=== PATIENT | female | born 2005 | race African-American/Black ===

== ENCOUNTER → 2024-07-08 10:49 | Outpatient (BNVA) | payer OTHER, SELFPAY | PROVIDERS: PCP Pediatrics; Visit Provider Surgery ==

== ENCOUNTER 2024-07-21 08:07 | Outpatient (AMB) | payer OTHER, SELFPAY ==
--- NOTE | 2024-07-21 08:01 | A.OFFVIS_ITS ---
VS Expanded 07/21/24 08:12 Height 5 ft 6 in Weight 341 lb 2 oz BMI 55.1 Body Fat % 49.7 Body Fat Mass 169.6 Fat Free Mass 171.6 Visceral Fat Rating 16 Body Water % 36.2 Body Water Mass 123.4 Basal Metabolic Rate/Score 2,565 Intake Visit Reasons: [employer] SWL BMI 55.1 Allergies No Known Allergies Allergy (Verified 07/21/24 08:01) Medication List - Last Reconciled 07/21/24 by Harshad Romero MD [id number] [id number] mg 1 cap PO Q4H PRN cetirizine (Zyrtec) 10 mg PO DAILY PRN cholecalciferol (vitamin D3) 50 mcg PO DAILY clindamycin phosphate 1% 1 appl topical BEDTIME fluticasone propionate 50 mcg/actuation (Flonase Allergy Relief) 1 spray intranasal DAILY medroxyprogesterone (Depo-Provera) 150 mg IM [id number] tretinoin 0.05% (Retin-A) 1 appl topical BEDTIME HPI HPI [employer] DIRECT[employer] SWL BMI 55.1: Details: Start time: 8am, End time: 8.47am ?I spent 42 minutes speaking with the patient on the phone plus an additional 5 minutes reviewing and updating records for a total of 47 minutes HPI Comments Details: Previous weight loss efforts: self diets, exercise, Premier protein shakes Wakes up: 8am, Sleeps: 10.30pm, Work days:4am-8am and 9am-11am Breakfast: 9-10am (scrambled eggs with toast) Lunch: 3pm (take-out: salads) Dinner: 8pm (salads, protein shakes) Snacks: 1pm (Quest protein bars), 12am (Adrian sandwich) Exercise: none Beverages: Coffee: none, tea: none, soda: none, juice: none, ETOH: none PFSH Medical History (Updated 07/21/24 @ 08:04 by Harshad Romero MD) Migraines Hypertension Acne Morbid obesity Surgical History (Updated 07/08/24 @ 11:10 by Yumiko Ferraro CMA) Hx of adenoidectomy Family History (Updated 07/08/24 @ 11:11 by Yumiko Ferraro CMA) Mother Thyroid condition Father No problems noted. Social History (Updated 07/08/24 @ 11:11 by Yumiko Ferraro CMA) Alcohol intake: never Patient Tobacco Use Status: Never used Tobacco Telehealth Telehealth Telehealth Platform: Telephone Location of provider rendering services: practice address Location of patient: address on file Patient Identification confirmed using: Name, : Yes Telehealth method: voice only Patient verbally consented to treatment: Yes Patient verbally consented to billing insurance company: Yes Patient informed of any privacy concerns related to visit: Yes Minutes spent on Phone/Video with Pt.: 47 Assessment & Plan Assessment & Plan (1) Morbid obesity: Code(s): E66.01 - Morbid (severe) obesity due to excess calories Category: Medical Plan: 1.? Plan for lap sleeve gastrectomy. If diaphragmatic or ventral hernias are present at time of surgery, these will be repaired laparoscopically as well. I emphasized the importance of close follow-up, adherence to instructions and good communication. The surgery does not replace the need to change your li festlyle which is the cause of the obesity problem. The surgery provides the motivation to try again to change your lifestyle, it reduces the appetite and make the transition to a better lifestyle easier and doubles the amount of weight you would lose compared to doing the lifestyle change without the surgery. You will need to be on a liquid diet with protein shakes for 2 weeks before surgery to maximize weight loss and boost your nutritional status to recover better from surgery and also for the first two weeks after surgery to let the stomach heal before we introduce other foods. After the first 2 weeks we will introduce protein bars and soft foods like scrambled eggs, cottage cheese and yogurt and after the 6th week will introduce meat, fish and cooked vegetables in small amounts. Over time you should be able to eat everything in small amounts. Side effects like nausea, vomiting, heartburn or abdominal pain are not common in the practice unless you are not following in the practice. This operation requires lifetime commitment to following in our practice and communication with me. You will much less weight and experience side effects if you don?t communicate or not following in the practice. Complications are rare and in our practice is about 1/10 of the national average. However, you can develop bleeding that may require transfusion (hasn?t happened for year in the practice), you may from complications (we did not have any deaths in the practice) and infections. Infections are usually a result of breakdown in communication or not understanding or following directions correctly. They are difficult to treat, they can happen during the first 6 weeks, they may require to be in the hospital for weeks or even months, not being able to eat by mouth and you may have drains and surgeries to try and correct the issue. Other risks and complications include possible conversion to an open procedure, leaks, small bowel obstruction, blood clots, cardiac, or pulmonary complications, as half-way complications such as ulcers, insufficient weight loss and vitamin deficiencies. 2. You will receive a link of our software zay to generate an individualized nutritional and exercise plan specific for you. Please send me a screenshot of the plans you will generate Meal to include lean meat (beef, fish, pork, turkey, chicken), or [place] and ca[place] islander yogurt, or egg whites, or beans with a salad with olive oil and fruits (berries, pears, apples, kiwi). Avoid salt, breads, potatoes, rice, pasta, desserts. ?3. If you choose shakes, each shake would be drunk slowly, like coffee in a period of 2 hours. ?4. If you choose bars, cut each bar in 4 pieces and eat each piece in 30min ?to make each bar last 2 hours. ?5. I emphasized the importance of measuring accurately the food portion and measure it when serving the food in plate ?6. The meal portions include a specific number of forks of meat and salad. You always eat the meat portion but you can replace up to half of salad/vegetables portion with rice, potatoes or pasta, or a fruit ?if you like. The less you do it the better weight loss will be. ?7. One full-size fork is what it can be scooped on the fork without falling aside and not what can be bit with the fork. Use regular forks like those you find in a typical restaurant. ?8.? Please buy the body composition scale we discussed and send me weight measurements as soon as possible and then once a week. Always include your diet and exercise plan. 9. The best choice would be to purchase a stationary bike, elliptical or treadmill at home that can track calories. You can create and exercise plan with the Go Try It OnI zay. ?10.?It is important of avoiding and for at least 18 months postoperatively and has been discussed at the infosession. ?11. Goal is to lose at least 1.5-2lbs per week ?12. Goal to lose at least 10% of your weight before surgery, which is about 34lbs. Minimum weight goal: 307lbs before surgery 13. Please follow the diet plan exactly without any change. If you don't like something about the plan or you feel hungry you need to communicate with me so I can help you revise the plan. You should not change the plan yourself. 14. To be scheduled for EGD to assess the stomach's anatomy. The possibility of biopsies was discussed. Patient needs to avoid use of NSAIDs and aspirin for 1 week prior to EGD. You must be on liquids only the day before your endoscopy. Risks of perforation and bleeding was discussed with the patient. This will be an outpatient procedure with IV sedation.
--- OUTSIDE RECORDS SUMMARY | 2024-07-21 08:11 | XMS_ITS | Encounter Summary ---
Author Organization [facility] Address [address] [place] [address] Phone Care Team Providers Care Workshop Manager Name Role Phone Renee Ayers MD Primary Care Provider [phone] Reason for Visit * Reason Onset Date Comments Med Refill 02/19/2022 Encounter Details Date Type Department Care Team ([facility] Contact Info) Description 02/19/2022 Refill [facility] [place] [address] [place] [address] Negar Srinivasan MD [address] [place] [address] Vitamin D deficiency, unspecified; Allergic rhinitis, unspecified seasonality, unspecified trigger Social History Tobacco Use Types Packs/Day Years Used Date Smoking Tobacco: Never Smokeless Tobacco: Never Alcohol Use Standard Drinks/Week Comments No 0 (1 standard drink = 0.6 oz pur e alcohol) Hunger/Food Answer Date Recorded In the last 12 months, did y ou or your family ever eat less than you felt you should because there wasn't enough money for food? No 02/02/2022 Stable Housing Answer Date Recorded Are you worried that in the next 2 months you may not have stable housing? No 02/02/2022 Transportation Concerns Answer Date Rec orded In the last 12 months, have you or your family ever had to go without healthcare because you didn't have a way to get there? No 02/02/2022 Hazards in Home Answer Date Recorded Think about the place you li ve. Do you have problems with any of the following? Pests (mice or roaches), mold, no/not working smoke detectors, water leaks, no window guards. No 2021 Financing Utilities Answer Date Recorde d In the last 12 months, has t he electric, gas, oil, or water company threatened to shut off your services in your home? No 02/02/2022 Safety at Home Answer Date Recorded Are you or your family worried about feeling saf e in your home? No 02/02/2022 Outside Support Answer Date Recorded Do you feel that you need mo re support from other people or programs to help you care for yourself or your family? No 02/02/2022 Understanding Health Concerns Answer Da te Recorded Do you need help understandi ng your or your child's healthcare needs (diagnosis, medications, plan, etc.)? No 02/02/2022 Financing Health Concerns Answer Date R ecorded In the last 12 months, was t here a time when your child needed to see a doctor or get medications or supplies but could not because of cost? No 02/02/2022 Missing School or Work Answer Date James rded Did you or your child miss s chool or work because of a health problem that could have been avoided? No 02/02/2022 Comments No Sex and Gender Information Value Date Recorded Sex Assigned at Female 12/05/2019 11:16 AM EDT Legal Sex Female 2:33 PM EDT Gender Identity Female 12/05/2019 11:16 AM EDT Sexual Orientation Straight 12/05/2019 11 :16 AM EDT documented as of this encounter Miscellaneous Notes * Telephone Encounter - No Rivera MD - 02/20/2022 6:08 PM EST Refills x 60 d to get pt to next [facility] * Telephone Encounter - Owen Gao LPN - 02/20/2022 10:50 AM EST Pt is requesting a refill on vitamin D and loratadine. Pt has PE scheduled for 02/22/22. documented in this encounter Plan of Treatment Upcoming Encounters Date Type Department Care Team (Late st Contact Info) Description 08/27/2024 8:30 AM EDT Office Visit [facility] [place] [address] [place] [address] Renee Ayers MD [address] [place] [address] 10/01/2024 10:15 AM EDT Office Visit [facility] [address] [place] [address] Renee Ayers MD [address] [place] [address] documented as of this encounter Visit Diagnoses Diagnosis Vitamin D deficiency, unspecified Allergic rhinitis, unspecified seasonality, unspecified trigger documented in this encounter Care Teams Workshop Manager Relationship Specialty Start Date End Date Renee Ayers MD [address] [place] [address] PCP - General Pediatrics 11/03/22 documented as of this encounter
[2024-07-21 08:12] VITALS: BMI 55.1
== END 2024-07-21 08:48 | disposition home or self-care (01) ==
LOC: HO.HBS 08:07
PROVIDERS: PCP Pediatrics; Visit Provider Surgery
DX: E66.01 Morbid (severe) obesity due to excess calories (principal)
CPT/HCPCS: 99204

== ENCOUNTER 2024-07-25 12:06 | Outpatient (REF) | payer OTHER, SELFPAY ==
--- NOTE | ~2024-07-25 | XR_ITS ---
EXAMINATION: XR CHEST 2 VIEWS HISTORY: E66.01 - Morbid (severe) obesity due to excess calories COMPARISON: There are no prior studies available for comparison. FINDINGS: PA and lateral views of the chest are submitted. The lungs are expanded and clear. There is no pleural effusion, pneumothorax, or pulmonary vascular congestion. The heart is normal in size. There is mild S-shaped scoliosis of the spine. XR/XR chest 2V IMPRESSION: Clear lungs. Electronically signed by: Dawit Yarbrough MD 07/25/2024 01:13 PM EDT
--- NOTE | 2024-07-25 12:28 | ECG_ITS ---
Test Reason : E66.1 Blood Pressure : */* mmHG Vent. Rate : 88 BPM Atrial Rate : 88 BPM P-R Int : 122 ms QRS Dur : 88 ms QT Int : 360 ms P-R-T Axes : 15 86 17 degrees QTcB Int : 435 ms Normal sinus rhythm with sinus arrhythmia Normal ECG No previous ECGs available Referred By: Harshad Romero Electronically Signed By: LOTUS FARRELL
[2024-07-25 12:29] LABS: MANUAL DIFF FLAG NO
--- OUTSIDE RECORDS SUMMARY | 2024-07-25 12:31 | XMS_ITS | Encounter Summary ---
Author Organization [facility] Address [address] [place] [address] Phone Care Team Providers Care Music Producer Name Role Phone Renee Ayers MD Primary Care Provider [phone] Reason for Visit * Reason Onset Date Comments Med Refill 02/19/2022 Encounter Details Date Type Department Care Team ([facility] Contact Info) Description 02/19/2022 Refill [facility] [place] [address] [place] [address] Negar Srinivasan MD [address] [place] [address] Vitamin D deficiency, unspecified; Allergic rhinitis, unspecified [...] 60 d to get pt to next [facility] * Telephone Encounter - Owen Gao LPN - 02/20/2022 10:50 AM EST Pt is requesting a refill on vitamin D and loratadine. Pt has PE scheduled for 02/22/22. documented in this encounter Plan of Treatment Upcoming Encounters Date Type Department Care Team (Late st Contact Info) Description 08/27/2024 8:30 AM EDT Office Visit [facility] [address] [place] [address] Renee Ayers MD [address] [place] [address] 10/01/2024 10:15 AM EDT Office Visit [facility] [address] [place] [address] Renee Ayers MD [address] [place] [address] documented as of this encounter Visit Diagnoses Diagnosis Vitamin D deficiency, unspecified Allergic rhinitis, unspecified seasonality, unspecified trigger documented in this encounter Care Teams Music Producer Relationship Specialty Start Date End Date Renee Ayers MD [address] [place] [address] PCP - General Pediatrics 11/03/22 documented as of this encounter
[2024-07-25 12:45] LABS: Basophils Absolute Auto 0.1 X10*3/uL (0.0-0.2); Basophils Percent Auto 0.7 % (0-2); Eosinophils Absolute Auto 0.1 X10*3/uL (0.0-0.4); Eosinophils Percent Auto 1.6 % (0-4); Hematocrit 38.5 % (37.0-47.0); Hemoglobin 12.6 g/dl (12.0-16.0); Imm Gran Abs Auto 0.08 X10*3/uL (0.00-0.03); Lymphocytes Absolute Auto 2.6 X10*3/uL (1.2-4.9); Lymphocytes Percent Auto 33.4 % (20-40); Mean Corpuscular HGB Conc 32.7 g/dl (31.0-35.0); Mean Corpuscular Hemoglobin 24.2 pg (27.0-33.0); Mean Platelet Volume 9.6 fL (9.4-12.3); Monocytes Absolute Auto 0.7 X10*3/uL (0.1-1.2); Neutrophils Absolute Auto 4.1 x10*3/uL (2.0-8.3); Neutrophils Percent Auto 54.3 % (45-73); Platelet Count 331 X10*3/uL (160-400); Red Cell Distribution Width 14.6 % (11.0-16.0); White Blood Count 7.6 X10*3/uL (4.8-10.8)
[2024-07-25 13:02] LABS: Estimated Average Glucose 114 mg/dL; Hemoglobin A1c % 5.6 % (<6.0)
[2024-07-25 13:41] LABS: Ferritin 136 ng/mL (10-122); Folate 12.4 ng/mL (> or = 4.0); TSH reflex Free T4 0.53 uIU/mL (0.32-4.0); Vitamin B12 440 pg/mL (200-900); Vitamin D 25-OH Total 27.1 ng/mL (>30)
[2024-07-25 14:03] LABS: Alanine Aminotransferase 25 U/L (0-31); Albumin Level 4.3 g/dL (3.5-5.0); Alkaline Phosphatase 109 U/L (39-117); Anion Gap 11 (12-20); Aspartate Amino Transferase 28 U/L (5-31); Bilirubin Total 0.5 mg/dL (0.0-1.0); Blood Urea Nitrogen 10 mg/dL (9-16); C Reactive Protein 4.32 mg/dL (< or = 0.50); Calcium 9.8 mg/dL (8.4-10.2); Carbon Dioxide 24 mmol/L (22-29); Chloride 110 mmol/L (96-108); Cholesterol 206 mg/dL (<200); Estimated Glomerular Filt Rate > 60; Glucose Random 93 mg/dL (60-115); HDL Cholesterol 47 mg/dL (>40); Iron 49 mcg/dL (30-160); LDL Cholesterol Calculated 143 mg/dL (<100); Percent Iron Saturation 15 % (15-50); Potassium 4.3 mmol/L (3.3-5.1); Sodium 141 mmol/L (135-145); Total Iron Binding Capacity 329 mcg/dL (228-428); Total Protein 7.5 g/dL (6.5-8.0); Triglycerides 84 mg/dL (<150); Unsaturated Iron Binding 280 ug/dL
[2024-07-25 14:38] LABS: Insulin 21 uU/mL (2-29)
[2024-07-29 17:38] LABS: Zinc 74 mcg/dL (60-130)
[2024-07-30 18:24] LABS: Vitamin A 26 mcg/dL (38-98)
[2024-07-31 15:24] LABS: Vitamin B1 8 nmol/L (8-30)
== END 2024-07-25 12:07 | disposition home or self-care (01) ==
LOC: HO.XRAY 12:06
PROVIDERS: PCP Pediatrics; Visit Provider Surgery
DX: E66.01 Morbid (severe) obesity due to excess calories (principal); I10 Essential (primary) hypertension
CPT/HCPCS: 36415; 71046; 80053; 80061; 82306; 82607; 82728; 82746; 83036; 83525; 83540; 84425; 84443; 84590; 84630; 85025; 86140; 93005

== ENCOUNTER → 2024-07-25 12:28 | Outpatient (BNV) | payer OTHER, SELFPAY | PROVIDERS: PCP Pediatrics; Visit Provider Internal Medicine | DX: E66.1 Drug-induced obesity (principal) | CPT/HCPCS: 93010 ==

== ENCOUNTER → 2024-07-25 12:38 | Outpatient (BNV) | payer OTHER, SELFPAY | PROVIDERS: PCP Pediatrics; Visit Provider Radiology Diagnostic Radiology | DX: E66.01 Morbid (severe) obesity due to excess calories (principal) | CPT/HCPCS: 71046 ==

== ENCOUNTER 2024-07-30 11:31 | Day surgery (SDC) | payer OTHER, SELFPAY ==
--- OUTSIDE RECORDS SUMMARY | 2024-07-28 15:08 | XMS_ITS | Encounter Summary ---
Author Organization [facility] Address [address] [place] [address] Phone Care Team Providers Care Training And Development Head Name Role Phone Renee Ayers MD Primary Care Provider [phone] Reason for Visit * Reason Onset Date Comments Med Refill 02/19/2022 Encounter Details Date Type Department Care Team ([facility] Contact Info) Description 02/19/2022 Refill [facility] [place] [address] [place] [address] Negar Srinivasan MD [address] [place] [address] Vitamin D deficiency, unspecified; Allergic rhinitis, unspecified [...] 60 d to get pt to next [facility] * Telephone Encounter - Owen Gao LPN - 02/20/2022 10:50 AM EST Pt is requesting a refill on vitamin D and loratadine. Pt has PE scheduled for 02/22/22. documented in this encounter Plan of Treatment Upcoming Encounters Date Type Department Care Team (Late st Contact Info) Description 08/27/2024 8:30 AM EDT Office Visit [facility] [address] [place] [address] Renee Ayers MD [address] [place] [address] 10/01/2024 10:15 AM EDT Office Visit [facility] [address] [place] [address] Renee Ayers MD [address] [place] [address] documented as of this encounter Visit Diagnoses Diagnosis Vitamin D deficiency, unspecified Allergic rhinitis, unspecified seasonality, unspecified trigger documented in this encounter Care Teams Training And Development Head Relationship Specialty Start Date End Date Renee Ayers MD [address] [place] [address] PCP - General Pediatrics 11/03/22 documented as of this encounter
--- NOTE | 2024-07-29 14:43 | HO.ANESPROP2 ---
Documented by User: Gisela Garduno NP 07/29/24 14:43 HPI - Anesthesia Eval Consult details Narrative: 18yo F for Upper Endoscopy BMI 55 Anesthesia Pre-Procedure Meds Is the patient on any of the following meds?: GLP1/DPP4 PMFSH Active Problems Active Problems: All Active Problems Migraines (Acute) Hypertension (Acute) Acne (Acute) Morbid obesity (Acute) Past Medical History Medical History H/O sleep study Migraines Hypertension Acne Morbid obesity Family History Family History Mother Thyroid condition Father No problems noted. Surgical History Surgical History Hx of adenoidectomy Social History Social History Alcohol intake: never Patient Tobacco Use Status: Never used Tobacco Use of substances other than those prescribed or required for medical reasons: No Are you DNR?: No Advance Directives: No Advance Directives Information Provided: Yes : No Poor oral hygiene: No Meds Allergies Allergy/AdvReac Type Severity Reaction Status Date / Time No Known Allergies Allergy Verified 07/21/24 08:01 Home Medications ?Medication ?Instructions ?Recorded ?Confirmed ?Last Taken ?Type butalbital 50 mg-acetaminophen 325 1 cap PO Q4H PRN 07/08/24 07/21/24 Unknown History mg-caffeine 40 mg-codeine 30 mg cap cetirizine 10 mg capsule (Zyrtec) 10 mg PO DAILY PRN 07/08/24 07/21/24 Unknown History cholecalciferol (vitamin D3) 50 50 mcg PO DAILY 07/08/24 07/21/24 Unknown History mcg (2,000 unit) capsule clindamycin phosphate 1 % topical 1 appl topical BEDTIME 07/08/24 07/21/24 Unknown History solution fluticasone propionate 50 1 spray intranasal DAILY 07/08/24 07/21/24 Unknown History mcg/actuation nasal spray,suspension (Flonase Allergy Relief) medroxyprogesterone 150 mg/mL 150 mg IM [id number] 07/08/24 07/21/24 Unknown History intramuscular suspension (Depo-Provera) tretinoin 0.05 % topical cream 1 appl topical BEDTIME 07/08/24 07/21/24 Unknown History (Retin-A) Assessment and Plan Assessment Anesthesia Assessment: Chart Reviewed Documented by User: Katherin Howard MD 07/30/24 12:45 [facility] Past Medical History Medical History H/O sleep study Migraines Hypertension Acne Morbid obesity Family History Family History Mother Thyroid condition Father No problems noted. Surgical History Surgical History Hx of adenoidectomy History of Problems with Anesthesia: No Social History Social History Alcohol intake: never Patient Tobacco Use Status: Never used Tobacco Use of substances other than those prescribed or required for medical reasons: No Are you DNR?: No Advance Directives: No Advance Directives Information Provided: Yes : No Poor oral hygiene: No Meds Allergies Allergy/AdvReac Type Severity Reaction Status Date / Time No Known Allergies Allergy Verified 07/21/24 08:01 Home Medications ?Medication ?Instructions ?Recorded ?Confirmed ?Last Taken ?Type butalbital 50 mg-acetaminophen 325 1 cap PO Q4H PRN 07/08/24 07/21/24 Unknown History mg-caffeine 40 mg-codeine 30 mg cap cetirizine 10 mg capsule (Zyrtec) 10 mg PO DAILY PRN 07/08/24 07/21/24 Unknown History cholecalciferol (vitamin D3) 50 50 mcg PO DAILY 07/08/24 07/21/24 Unknown History mcg (2,000 unit) capsule clindamycin phosphate 1 % topical 1 appl topical BEDTIME 07/08/24 07/21/24 Unknown History solution fluticasone propionate 50 1 spray intranasal DAILY 07/08/24 07/21/24 Unknown History mcg/actuation nasal spray,suspension (Flonase Allergy Relief) medroxyprogesterone 150 mg/mL 150 mg IM [id number] 07/08/24 07/21/24 Unknown History intramuscular suspension (Depo-Provera) tretinoin 0.05 % topical cream 1 appl topical BEDTIME 07/08/24 07/21/24 Unknown History (Retin-A) Exam Airway Mallampati Class: III TM Dist: >3cm Neck ROM: Full Loose/Missing/Broken Teeth: No Heart: RRR Lungs: CTA Assessment and Plan Assessment Anesthesia Assessment: Anesthesia Plan Discussed Final Anesthetic Review History of Problems with Anesthesia: No NPO: Yes ASA Class: III Final Preanesthetic Review: Meds/Allgs Chart Reviewed, Consent Obtained/Reviewed and Anes Risks/Benef Reviewed Patient Risk: Intermediate Procedure Risk: Intermediate Anesthetic Plan Anesthetic Plan: MAC: Disposition: Standard PACU
[2024-07-30 12:01] VITALS: BMI 53.5
[2024-07-30 12:13] VITALS: BMI 53.5
[2024-07-30 12:40] VITALS: BP 135/72; PULSE 90; RESP 16; TEMP 36.5; O2SAT 98
[2024-07-30] MEDS: Lactated Ringers 1,000 ML 100 ML IVCONT (12:49)
[2024-07-30 12:56] LABS: HCG Quantitative < 2 mIU/mL
--- NOTE | 2024-07-30 12:58 | MHC.SHP ---
Pre-Procedural Eval Section A - 24 Hr Update-Section A only Date of Service: 07/30/24 The patient is an INPATIENT: No The patient has been examined within 24 hours of the surgical procedure. The History & Physical has been completed within 30 days and I have reviewed it.: Yes Section B - Complete if H&P > 30 days Chief Complaint: Morbid (severe) obesity due to excess calories Relevant Family History (Specify if Yes): No Relevant Social History: None Present Medications: None Medical History: No relevant PMH History of Previous Operations: No relevant previous surgery Allergies: Allergies Allergy/AdvReac Type Severity Reaction Status Date / Time No Known Allergies Allergy Verified 07/21/24 08:01 Review of Systems Sugical H&P ROS: Negative: Constitution, Cardiovascular, Respiratory, Neurological, Psychiatric, Hem-Onc, Allergic/Immunologic, Gastrointestinal, Genitourinary, Musculoskeletal, Integumentary, Endocrine and Eyes/Ears/Nose/Throat Exam Surgical H&P Exam: Normal: HEENT, Normal: Heart, Normal: Lungs, Normal: Extremities, Normal: Abdomen, Normal: Skin and Normal: Neurological Plan Diagnosis/Plan: Unchanged (EGD to assess the stomach's anatomy. Risks of bleeding and perforation were discussed with the patient and she is in agreement with the plan.) I have reviewed the history and physical and performed a pertinent physical examination on my patient. No changes have occurred unless specified. Time Spent With Patient Time: Total time managing care of this patient today ____ minutes.
--- NOTE | 2024-07-30 13:01 | P.BOP_ITS ---
Brief Operative Note Date of Service: 07/30/24 Pre-op diagnosis: Morbid obesity Post-op diagnosis: same Procedure: PROCEDURE DATE: 07/30/2024 PREOPERATIVE DIAGNOSIS: Morbid obesity POSTOPERATIVE DIAGNOSIS: ?Same as above. 1) small hiatal hernia PROCEDURE: Csfshlen-eephzg-scizgmddipyi with biopsies Surgeon: ?Adriano Romero M.D.. Ph.D. Media Intern: None ? Anesthesia: IV sedation Estimated blood loss: ?Minimal FINDINGS AND PROCEDURE: ? OPERATIVE INDICATIONS: ?The patient is a 18 year old female known to me who is interested in bariatric surgery. Based on this information I recommended an upper endoscopy to evaluate the stomach's anatomy. Risks and complications of the surgery were discussed with the patient in advance particularly the possibility of perforation or bleeding that may require surgical intervention. The patient understood the risks and was in agreement with the plan. ? PROCEDURE: After informed consent was obtained by the patient, the patient was ?transferred to the Operating Room and was placed in the supine position.? After successful induction of IV sedation, a mouth block was inserted and the patient was placed in the left lateral decubitus position. An upper endoscopy was performed next, the oropharynx and esophagus appeared within the normal limits. There was a small 2-3cm hiatal hernia. The z-line was smooth. Two biopsies were obtained from the distal esophagus 2-3 cm proximal to the GE junction and two additional biopsies from the GE junction. The stomach was entered and it appeared to be of normal size. There was no gastritis. There was no stricture or ulcer. A biopsy was obtained from the gastric fundus and the antrum. No significant bleeding was noted from any of the biopsy sites. Retroflexion of the scope confirmed the presence of a small diaphragmatic hernia. The scope was then advanced into the duodenum which appeared to be normal as well. At that point the duodenum ?and the stomach were decompressed and the scope was withdrawn from the patient's mouth. The patient extubated and was transferred in stable condition to the Recovery Room for further care. I was present and performed all steps of the procedure. There were no residents to assist with this case. Adriano Romero M.D., Ph.D. Surgeon: Harshad Romero MD Anesthesia: MAC Was an Media Intern used for this Procedure?: No Estimated blood loss (mL): 0 IV fluids (mL): 400 Urine output (mL): 0 (No [place] to record output) Pathology: other (1) antrum x1, 2) fundus x1, 3) GE junction x2, 4) distal esophagus x2) Condition: stable Disposition: PACU
[2024-07-30 13:35] VITALS: BP 139/79; PULSE 104; RESP 12; TEMP 36.8; O2SAT 100
[2024-07-30 13:50] VITALS: BP 149/88; PULSE 87; RESP 16; TEMP 36.6; O2SAT 98
== END 2024-07-30 14:13 | disposition home or self-care (01) ==
PROVIDERS: Anesthesiology; PCP Pediatrics; Visit Provider Surgery
PROC: 0DJ08ZZ Inspection of Upper Intestinal Tract, Via Natural or Artificial Opening Endoscopic (ICD-10-PCS; CPT 43235; principal; 2024-07-30 15:30)
DX: E66.01 Morbid (severe) obesity due to excess calories (principal); Z68.43 Body mass index [BMI] 50.0-59.9, adult; K44.9 Diaphragmatic hernia without obstruction or gangrene; I10 Essential (primary) hypertension; G43.909 Migraine, unspecified, not intractable, without status migrainosus; L70.9 Acne, unspecified; Z90.89 Acquired absence of other organs; Z79.899 Other long term (current) drug therapy
CPT/HCPCS: 43239; 36415; 84702; 88305; 88313; 88342

== ENCOUNTER → 2024-07-30 11:31 | Outpatient (BNV) | payer OTHER, SELFPAY | PROVIDERS: PCP Pediatrics; Visit Provider Surgery | DX: K44.9 Diaphragmatic hernia without obstruction or gangrene (principal) | CPT/HCPCS: 43239 ==

== ENCOUNTER 2024-08-08 10:12 | Outpatient (AMB) | payer OTHER, SELFPAY ==
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
--- OUTSIDE RECORDS SUMMARY | 2024-08-08 10:28 | XMS_ITS | Encounter Summary ---
Author Organization [facility] Address [address] [place] [address] Phone Care Team Providers Care Security System Technician Name Role Phone Renee Ayers MD Primary Care Provider [phone] Reason for Visit * Reason Onset Date Comments Med Refill 02/19/2022 Encounter Details Date Type Department Care Team ([facility] Contact Info) Description 02/19/2022 Refill [facility] [address] [place] [address] Negar Srinivasan MD [address] [place] [address] Vitamin D deficiency, unspecified; Allergic rhinitis, unspecified [...] 60 d to get pt to next [facility] * Telephone Encounter - Owen Gao LPN - 02/20/2022 10:50 AM EST Pt is requesting a refill on vitamin D and loratadine. Pt has PE scheduled for 02/22/22. documented in this encounter Plan of Treatment Upcoming Encounters Date Type Department Care Team (Late st Contact Info) Description 08/27/2024 8:30 AM EDT Office Visit [facility] [address] [place] [address] Renee Ayers MD [address] [place] [address] 10/01/2024 10:15 AM EDT Office Visit [facility] [address] [place] [address] Renee Ayers MD [address] [place] [address] documented as of this encounter Visit Diagnoses Diagnosis Vitamin D deficiency, unspecified Allergic rhinitis, unspecified seasonality, unspecified trigger documented in this encounter Care Teams Security System Technician Relationship Specialty Start Date End Date Renee Ayers MD [address] [place] [address] PCP - General Pediatrics 11/03/22 documented as of this encounter
== END 2024-08-08 11:38 | disposition home or self-care (01) ==
LOC: HO.HBST 10:12
PROVIDERS: PCP Pediatrics; Visit Provider Counselor Mental Health
DX: F43.9 Reaction to severe stress, unspecified (principal)
CPT/HCPCS: 90791

== ENCOUNTER 2024-09-01 11:10 | Outpatient (AMB) | payer BC, OTHER, SELFPAY ==
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
--- OUTSIDE RECORDS SUMMARY | 2024-09-01 12:15 | XMS_ITS | Clinical Summary ---
Author Organization [facility] Address [address] [place] [address] Phone Care Team Providers Care Ranch Manager Name Role Phone No Rivera MD Primary Care Provider [phone] Allergies No known active allergies Medications butalbital-acet aminophen-caffe ine 50-300-40 mg capsule TAKE 1 CAPSULE BY MOUTH EVERY 12 (TWELVE) HOURS NEEDED (HEADACHE). 01/22/2024 Active cetirizine (ZyrTEC) 10 mg tablet TAKE 1 TABLET BY MOUTH UP TO TWICE A DAY 02/11/2024 Active Vitamin D3 50 mcg (2,000 unit) capsule Take 1 capsule (2,000 Units total) by mouth 1 (one) time each day. 01/12/2024 Active medroxyPROGESTE Shar 150 mg/mL injection INJECT 1 ML (150 MG TOTAL) INTO THE MUSCLE EVERY 3 (THREE) MONTHS 01/04/2024 Active Active Problems No known active problems Immunizations Name Administration Dates Next Due DTaP (Infanrix) 6wks to less than 7yo ,05/23/2005,07/26/2004,05/11,02/17/2004 [id number] (Pentacel) 2mo to less than 5yo 05/23/2005,05/11/2004,02/17/2004 H1N1 Inj Preservative Free 03/22/2022,,12/05/2019,12/17,11/13/2016,05/11/2016,03/24/2015 HPV, Quadrivalent 08/05/2015,03/24/2015,10/16/19 15 Hepatitis A Pediatric (Havri x; Vaqta) 12mo to less than 19yo 10/13/2013,06/07/2012 Hepatitis B Pediatric (Enger ix B; Recombivax HB) to less than 20 yo 02/16/2005,05/11/2004,2003 IPV Inactivated polio (Ipol) 6wks and older 06/08/2011,07/26/2004,05/11/2004,02/11 MMRV, measles mumps rubella and varicella live (Proquad) 4yo to less than 7yo 03/30/2008,11/28/2004 Meningococcal B, Recombinant (Bexsero) 16yo to less than 24yo 09/02/2021,01/07/2021 [employer] SARS-CoV-2 COVID-19, mRNA, LNP-S, preservative free 02/18/2021,07/09/2020,06/18/2020 Tdap Tetanus diptheria acell ular pertussis (Boostrix; Adacel) 7yo and older 03/24/2015 Varicella live (Varivax) 12m o and older 03/30/2008,05/23/2005 Surgical History Surgery Date Site/Laterality Comments ADENOIDECTOMY PROCEDURE: HISTORICAL ADENOIDECTOMY Medical History Medical History Date Comments Patient denies medical problems DX:Patient denies medical problems Family History Medical History Relation Name Comments No Known Problems Brother 1 No Known Problems Brother 2 No Known Problems Father No Known Problems Maternal Grandfather No Known Problems Maternal Grandmother Thyroid disease Mother Pancreatic cancer Paternal Grandfather Diabetes Paternal Grandmother Hypertension Paternal Grandmother No Known Problems Sister 1 Thyroid disease Sister 2 Breast cancer Neg Hx Colon cancer Neg Hx Ovarian cancer Neg Hx Relation Name Status Comments Brother 1 Alive Brother 2 Alive Father Alive Maternal Grandfather Alive Maternal Grandmother Alive Mother Alive Paternal Grandfather Paternal Grandmother Alive Sister 1 Alive Sister 2 Alive Social History Tobacco Use Types Packs/Day Years Used Date Smoking Tobacco: Never Smokeless Tobacco: Never Alcohol Use Standard Drinks/Week Comments Never 0 (1 standard drink = 0.6 oz pur e alcohol) Comments No Sex and Gender Information Value Date Recorded Sex Assigned at Female 02/29/2024 4:56 PM EST Legal Sex Female 2:35 PM EST Gender Identity Female 02/29/2024 4:56 PM EST Sexual Orientation Not on file 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 on file Not on file Not on file Obstetrics History Para Term AB IAB SAB Ectopic Multiple Livin g Live Births 0 0 0 0 0 0 0 0 0 0 0 Last Filed Vital Signs Vital Sign Reading Time Taken Comments Blood Pressure 125/84 02/29/2024 3:32 PM EST Pulse 89 02/29/2024 3:32 PM EST Temperature - - Respiratory Rate - - Oxygen Saturation - - Inhaled Oxygen Concentration - - Weight 145 kg (319 lb) 02/29/2024 3:32 PM EST Height 167.6 cm (5' 6 ) 02/29/2024 3:32 PM EST Body Mass Index 51.49 02/29/2024 3:32 PM EST Plan of Treatment Health Maintenance Due Date Last Done Comments Depression Screening 01/18/2022 HIV Screening 01/18/2022 Hepatitis C Screening 01/18/2022 Social Influencers of Health Screening 01/18/2022 COVID-19 Vaccine ( season) 2023 02/18/2021, 07/09/2020, 06/18/2020 Influenza Vaccine (#1) 2024 , 10/22/2020, 12/05/2019, Additional history exists Annual Well Child Visit (3-21 years old) 02/28/2025 02/29/2024, 10/26/2022 Gonorrhea/Chlamydia Screening 02/28/2025 02/29/2024, 10/26/2022 DTaP,Tdap,and Td Vaccines (7 - Td or Tdap) 03/24/2025 03/24/2015, 03/30/2008, 05/23/2005, Additional history exists Hepatitis B Vaccines Completed 02/16/2005, 05/11/2004, 2003 HIB Vaccines Completed 05/23/2005, 04/20, 02/17/2004 MMR Vaccines Completed 03/30/2008, 11/28/2004 Varicella Vaccines Completed 03/30/2008, 0 03/30/2008, 05/23/2005, Additional history exists IPV Vaccines Completed 06/08/2011, 05/2005, 07/26/2004, Additional history exists Hepatitis A Vaccines Completed 10/13/2013, 06/08/19 13 HPV Vaccines Completed 08/05/2015, 04/2015, 10/15/2014 Meningococcal B Vaccine Completed 09/02/2021, 01/07 Meningococcal ACWY Vaccine Aged Out N o longer eligible based on patient's age to complete this topic Pneumococcal Vaccine: Pediatrics (0 to 5 Years) and At-Risk Patients (6 to 49 Years) Aged Out No longer eligible based on patient's age to complete this topic RSV Immunization Patients Under 20 months Aged Out No longer eligible based on patient's age to complete this topic Procedures Procedure Name Priority Date/Time Associated Diagnosis Comments CHLAMYDIA TRACHOMATIS AND NEISSERIA GONORRHOEAE PCR Routine 02/29/2024 3:55 PM EST Encounter for well woman exam with routine gynecological exam Screen for STD (sexually transmitted disease) from Last 3 Months or Most Recently Relevant to Health Maintenance Results * Chlamydia trachomatis and Neisseria gonorrhoeae molecular study (02/29/2024 3:55 PM EST) Neisseria gonorrhoeae PCR Negative Negative LAB MOLECULAR DIAGNOSTICS METHOD 03/01/2024 9:43 AM EST [facility] Chlamydia trachomatis PCR Negative Negative LAB MOLECULAR DIAGNOSTICS METHOD 03/01/2024 9:43 AM EST [facility] Swab Cervix uteri structure / Unknown Non-blood Collection / Unknown 02/29/2024 3:55 PM EST 02/29/2024 4:11 PM EST Renita Solitario CNM LAB MICROBIOLOGY - GENERAL OR DERABLES Final Result [facility] [address] [place] [address], from Last 3 Months or Most Recently Relevant to Health Maintenance Insurance [facility] [employer] Care Teams Ranch Manager Relationship Specialty Start Date End Date No Rivera MD [address] [place] [address] PCP - General 07/06/22
--- OUTSIDE RECORDS SUMMARY | 2024-09-01 12:15 | XMS_ITS | Clinical Summary ---
Author Organization [facility] Address [address] [place] [address] Care Team Providers Care Java Tech Name Role Phone No Rivera MD Primary Care Provider [phone] Social History Tobacco Use Types Packs/Day Years Used Date Smoking Tobacco: Never Assessed Comments Unknown Sex and Gender Information Value Date Recorded Sex Assigned at Female 11/29/2021 1:49 AM EDT Legal Sex Female 1:49 AM EDT Gender Identity Not on file Sexual Orientation Not on file Last Filed Vital Signs Vital Sign Reading Time Taken Comments Blood Pressure - - Pulse - - Temperature - - Respiratory Rate - - Oxygen Saturation - - Inhaled Oxygen Concentration - - Weight 115 kg (254 lb 6.6 oz) 09/22/2021 8:20 AM EDT Height 167.5 cm (5' 5.95 ) 09/22/2021 8:20 AM ED T Body Mass Index 41.13 09/22/2021 8:20 AM EDT Plan of Treatment Not on file Care Teams Java Tech Relationship Specialty Start Date End Date No Rivera MD [address] [place] [address] ROSMERY Lopez [address] PCP - General 09/22/21
--- OUTSIDE RECORDS SUMMARY | 2024-09-01 12:15 | XMS_ITS | Encounter Summary ---
Author Organization [facility] Address [address] [place] [address] Phone Care Team Providers Care Bookkeeper Name Role Phone Renee Ayers MD Primary Care Provider [phone] Reason for Visit * Reason Onset Date Comments Med Refill 02/19/2022 Encounter Details Date Type Department Care Team ([facility] Contact Info) Description 02/19/2022 Refill [facility] [address] [place] [address] Negar Srinivasan MD [address] [place] [address] Vitamin D deficiency, unspecified; Allergic rhinitis, unspecified [...] d to get pt to next [facility] * Telephone Encounter - Owen Gao LPN - 02/20/2022 10:50 AM EST Pt is requesting a refill on vitamin D and loratadine. Pt has PE scheduled for 02/22/22. documented in this encounter Plan of Treatment Upcoming Encounters Date Type Department Care Team (Late st Contact Info) Description 10/01/2024 10:15 AM EDT Office Visit [facility] [address] [place] [address] Renee Ayers MD [address] [place] [address] documented as of this encounter Visit Diagnoses Diagnosis Vitamin D deficiency, unspecified Allergic rhinitis, unspecified seasonality, unspecified trigger documented in this encounter Care Teams Bookkeeper Relationship Specialty Start Date End Date Renee Ayers MD [address] [place] [address] PCP - General Pediatrics 11/03/22 documented as of this encounter
== END 2024-09-01 12:03 | disposition home or self-care (01) ==
LOC: HO.HBST 11:10
PROVIDERS: PCP Pediatrics; Visit Provider Counselor Mental Health
DX: F43.9 Reaction to severe stress, unspecified (principal)
CPT/HCPCS: 90837

== ENCOUNTER 2024-09-18 08:18 | Outpatient (REF) | payer BC, OTHER, SELFPAY ==
--- NOTE | ~2024-09-18 | US_ITS ---
EXAMINATION: US ABDOMEN COMPLETE WITH LIVER ELASTOGRAPHY HISTORY: E66.01 - Morbid (severe) obesity due to excess calories TECHNIQUE: Real-time grayscale ultrasound imaging of the abdomen was performed and images were reviewed. COMPARISON: There are no prior studies available for comparison. FINDINGS: Liver: The right lobe of the liver measures 14.0 cm in size. The left lobe of the liver measures 9.0 cm in size. The liver demonstrates normal homogeneous echotexture. No focal mass or intrahepatic biliary ductal dilatation is identified. There is normal hepatopedal flow in the portal vein. Ultrasound elastography of the liver was performed with 10 separate measurements of the liver parenchyma with the patient in the supine position. Measurements were obtained approximately 2 cm below Christina's capsule and perpendicular to the capsule. The median shear wave velocity is 1.38 m/s. The interquartile range/median (IQR/median) is 0.17. Gallbladder and biliary tree: The gallbladder is unremarkable, without evidence of calculi, wall thickening, or pericholecystic fluid. There is no sonographic Dubois sign. The common bile duct is normal in caliber measuring 3 mm. Kidneys: The right kidney measures 10.3 cm in length. The left kidney measures 11.6 cm in length. The kidneys are unremarkable, without evidence of masses, hydronephrosis, or calculi. Pancreas: The pancreatic head, neck, and body are unremarkable. The pancreatic tail is obscured by bowel gas. Spleen: The spleen is normal in size and contour, measuring 10.9 cm in length. Abdominal aorta and inferior vena cava: The visualized portions of the abdominal aorta and inferior vena cava are normal in caliber. There is no free fluid in the abdomen. US/US abdomen comp w elastography IMPRESSION: Unremarkable abdominal ultrasound. The median shear wave velocity in the liver is 1.38 m/s, corresponding to a median liver stiffness of 5.72 kPa. The IQR/median value is 0.17. This is indicative of a poor quality data set, and the estimated liver stiffness may be unreliable. Findings are indicative of a low elastography value which rules out advanced chronic liver disease in asymptomatic patients. REFERENCE: Society of Radiologists in Ultrasound Liver Stiffness Thresholds (2020): LIVER STIFFNESS THRESHOLDS: *Shear wave velocity less than 1.3 m/s (Liver Stiffness equal or less than 5 kPa): High probability of being normal. *Shear wave velocity less than 1.7 m/s (Liver Stiffness less than 9 kPa): In the absence of other known clinical signs, rules out compensated advanced chronic liver disease. *Shear wave velocity between 1.7-2.1 m/s (Liver Stiffness 9-13 kPa): Suggestive of compensated advanced chronic liver disease but need further test for confirmation. *Shear wave velocity between 2.1-2.4 m/s (Liver Stiffness 13-17 kPa): Rules in compensated advanced chronic liver disease. *Shear wave velocity greater than 2.4 m/s (Liver Stiffness over 17 kPa): Suggestive of clinically significant portal hypertension. QUALITY OF DATA SET: *IQR/Median value equal or less than 0.15 implies a quality data set. *IQR/Median value over 0.15 implies a poor quality data set. SIGNIFICANT CHANGE FROM PRIOR EXAM: Significant change if liver stiffness measurement is 10% or greater from prior exam. OTHER CONSIDERATIONS: The stage of liver fibrosis may be overestimated in the setting of acute hepatitis, liver inflammation, elevated liver function tests, hepatic vascular congestion, obstructive cholestasis, non-fasting state, and infiltrative diseases such as amyloidosis and lymphoma. In some patients with NAFLD, the liver stiffness thresholds for compensated advanced chronic liver disease may be lower. In causes other than viral hepatitis and NAFLD, liver stiffness thresholds are not well established. Electronically signed by: Dawit Yarbrough MD 09/18/2024 09:19 AM EDT
--- OUTSIDE RECORDS SUMMARY | 2024-09-18 08:27 | XMS_ITS | Clinical Summary ---
Author Organization [facility] Address [address] [place] [address] Phone Care Team Providers Care Scroll Machine Operator Name Role Phone No Rivera MD Primary Care Provider [phone] Allergies No known active allergies Medications butalbital-acet [...] (Infanrix) 6wks to less than 7yo ,05/23/2005,07/26/2004,05/11,02/17/2004 [id number]-[id number]-GKY (Pentacel) 2mo to less than 5yo 05/23/2005,05/11/2004,02/17/2004 [...] (Bexsero) 16yo to less than 24yo 09/02/2021,01/07/2021 Envoy SARS-CoV-2 COVID-19, mRNA, LNP-S, preservative free 02/18/2021,07/09/2020,06/18/2020 [...] file Not on file Not on file 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 Not on file Not on file Not [...] Health Maintenance Due Date Last Done Comments HIV Screening 01/18/2022 Hepatitis C Screening 01/18/2022 Social Influencers of Health Screening 01/18/2022 COVID-19 Vaccine ( season) 2023 02/18/2021, 07/09/2020, 06/18/2020 Depression Screening 02/20/2024 Influenza Vaccine (#1) 2024 , 10/22/2020, 12/05/2019, [...] MOLECULAR DIAGNOSTICS METHOD 03/01/2024 9:43 AM EST [facility] Chlamydia trachomatis PCR Negative Negative LAB MOLECULAR DIAGNOSTICS METHOD 03/01/2024 9:43 AM EST [facility] Swab Cervix uteri structure / Unknown Non-blood Collection / Unknown 02/29/2024 3:55 PM EST 02/29/2024 4:11 PM EST Renita Solitario CNM LAB MICROBIOLOGY - GENERAL OR DERABLES Final Result [facility] [address] [place] [address], from Last 3 Months or Most Recently Relevant to Health Maintenance Insurance [facility] Care Teams Scroll Machine Operator Relationship Specialty Start Date End Date No Rivera MD [address] [place] [address] PCP - General 07/06/22
--- OUTSIDE RECORDS SUMMARY | 2024-09-18 08:27 | XMS_ITS | Clinical Summary ---
Author Organization [facility] Address [address] [place] [address] Care Team Providers Care Bank Appraiser Name Role Phone No Rivera MD Primary Care Provider [phone] Social History Tobacco Use Types Packs/Day Years [...] of Treatment Not on file Care Teams Bank Appraiser Relationship Specialty Start Date End Date No Rivera MD [address] [place] [address] ROSM[place] Lopez [id number] PCP - General 09/22/21
--- OUTSIDE RECORDS SUMMARY | 2024-09-18 08:27 | XMS_ITS | Encounter Summary ---
Author Organization [facility] Address [address] [place] [address] Phone Care Team Providers Care Individualized Education Plan Aide Name Role Phone Renee Ayers MD Primary Care Provider [phone] Reason for Visit * Reason Onset Date Comments Med Refill 02/19/2022 Encounter Details Date Type Department Care Team ([facility] Contact Info) Description 02/19/2022 Refill [facility] [address] [place] [address] Negar Srinivasan MD [address] [place] [address] Vitamin D deficiency, unspecified; Allergic rhinitis, unspecified [...] 60 d to get pt to next [facility] * Telephone Encounter - Owen Gao LPN - 02/20/2022 10:50 AM EST Pt is requesting a refill on vitamin D and loratadine. Pt has PE scheduled for 02/22/22. documented in this encounter Plan of Treatment Upcoming Encounters Date Type Department Care Team (Late st Contact Info) Description 10/01/2024 10:15 AM EDT Office Visit [facility] [address] [place] [address] Renee Ayers MD [address] [place] [address] documented as of this encounter Visit Diagnoses Diagnosis Vitamin D deficiency, unspecified Allergic rhinitis, unspecified seasonality, unspecified trigger documented in this encounter Care Teams Individualized Education Plan Aide Relationship Specialty Start Date End Date Renee Ayers MD [address] [place] [address] PCP - General Pediatrics 11/03/22 documented as of this encounter
== END 2024-09-18 08:19 | disposition home or self-care (01) ==
LOC: HO.US 08:18
PROVIDERS: PCP Pediatrics; Visit Provider Surgery
DX: E66.01 Morbid (severe) obesity due to excess calories (principal); I10 Essential (primary) hypertension
CPT/HCPCS: 76700; 76981

== ENCOUNTER → 2024-09-18 08:39 | Outpatient (BNV) | payer BC, OTHER, SELFPAY | PROVIDERS: PCP Pediatrics; Visit Provider Radiology Diagnostic Radiology | DX: E66.01 Morbid (severe) obesity due to excess calories (principal) | CPT/HCPCS: 76700 ==